=== PATIENT | female | born 1965 | race Hispanic/Latino ===

== ENCOUNTER → 2019-06-24 | Outpatient (CLI) | payer BC | END | disposition home or self-care (01) | LOC: OIH 10:08 | PROVIDERS: ATTEND Internal Medicine | DX: M85.841 Other specified disorders of bone density and structure, right hand (principal); M85.842 Other specified disorders of bone density and structure, left hand; M20.11 Hallux valgus (acquired), right foot; M20.12 Hallux valgus (acquired), left foot; M06.4 Inflammatory polyarthropathy | CPT/HCPCS: 73130; 73630 ==